=== PATIENT | male | born 2000 | race Two or more races ===

== ENCOUNTER 2023-09-05 19:54 | Emergency (ER) | payer OTHER, SELFPAY ==
[2023-09-05 20:26] VITALS: BP 125/59; PULSE 73; RESP 18; TEMP 36.6; O2SAT 97; BMI 32.6
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
[2023-09-05] MEDS: Ketorolac Tromethamine 15 MG/ML VIAL IM (20:45)
[2023-09-05] MEDS: Cyclobenzaprine HCl 5 MG TABLET PO (20:45)
== END 2023-09-05 20:53 | disposition home or self-care (01) ==
PROVIDERS: Emergency Provider Emergency Medicine
DX: S13.4XXA Sprain of ligaments of cervical spine, initial encounter (principal); X58.XXXA Exposure to other specified factors, initial encounter; Y93.9 Activity, unspecified; Y92.9 Unspecified place or not applicable; Y99.9 Unspecified external cause status
CPT/HCPCS: 96372; 99283; 99284; J1885